=== PATIENT | female | born 1970 | race Caucasian/White ===

== ENCOUNTER → 2017-05-28 | Outpatient (CLI) | payer OTHER ==
--- NOTE | 2017-05-29 07:12 | PAP/PSG TECHNICIAN REPORT ---
[facility] Corporate Travel Counselor Polysomnogram Report Study name: None Report date: 05/29/2017 Study date: 05/28/2017 Referring Physician: Narinder Martines M.D. Name: TAMERA BRISENO Interpreting Physician: Farhana Martines M.D. Date of : 1970 Corporate Travel Counselor: TARAH Da Silva. Sex: Female Age: 46 StudyType: PSG Weight: 174 lbs Height: 46 years, Height 5' 8" Neck Circum: 15 inches BMI: 26.45 Medications: Celexa 40 mg Patient History 46 yr. old female here for a possible split night sleep study in room 5. Patient complains of EDS, snoring, and frequent awakenings. Patients [place] Sleepiness Scale score is 14/24. Parameters Monitored NPSG: E1-M2, E2-M1, Fp1-M2, Fp2-M1, F3-M2, F4-M2, F4-M1, C3-M2, C4-M2, C4-M1, O1-M2, O2-M2, O2-M1, T3-M2, T4-M1, P3-M2, P4-M1, CHIN1, CHIN2, HR, EKG, Legs, PFLOW, SNOR, FLOW, CFLOW, Tidal Volume, THOR, ABDO, SpO2, PLTH, CPRESS, ETCO2 Wave, ETCO2, pH Sleep Architecture Sleep Stages Time at Lights Off 8:33:23 PM STAGES Time (min.) TST (%) Time at Lights On 5:33:53 AM Wake 58.5 -- Total Recording Time (TRT) 540.50 min. N1 30.5 6 Total Sleep Period (TSP) 506.0 min. N2 364.5 76 Total Sleep Time (TST) 482.0min. N3 10.0 2 Awake Time 58.5 min. REM 77.0 16 Wake after Sleep Onset 24.0 min. Sleep Efficiency (SE) 89 % Sleep Onset Latency (MYRA) 34.5 min. Number of Stage 1 Shifts None Awakenings 17 Stage Changes 78 Number of REM periods 5 REM 77.0 16 REM Latency 318.5 min. NREM 405.0 84 Body Position Analysis Supine Right Left Side Prone Vertical Total Sleep Time (min.) 531.2 6.5 0.0 6.50 0.0 0.0 Total Sleep Time (%) 99% 1% 0% 1 0% N/A% Total Sleep Time REM (min.) 77.0 0.0 0.0 None 0.0 0.0 Total Sleep Time NREM (min.) 398.5 6.5 0.0 None 0.0 0.0 Intermittent Wake (min.) 55.7 2.8 0.0 None 0.0 0.0 Total Sleep Period (%) 98% None None None None None Arousals Myoclonus (PLM) * Events Count Index Events Count Index Spontaneous 9 1 Events Awake (PLMW) 17 17.4 Respiratory 43 5.6 Events Asleep w/ Arousal (PLMA) 24 3.0 PLM 24 3 Events Asleep w/o Arousal (PLMS) 97 12.1 Snoring 15 2 Total Asleep 121 15.1 Total 91 11 Total 138 15 Respiratory Analysis * CA OA MA CH H RERA Total Count 0 10 0 0 32 41 42 Index 0.0 1.2 0.0 0 4.0 5 10.3 Mean Duration 0.0 14.8 0.0 0.00 23.6 20.3 20.9 Longest Duration 0.0 23.5 0.0 0.00 0.0 28.6 52.6 Respiratory Event Summary Total Supine ~Supine Right Left Prone REM NREM Apneas Count 10 10 0 0 N/A N/A 3 7 Index 1.2 1 0 0.0 N/A N/A 2 1 Hypopneas (4% Desat) Count 32 32 0 0 N/A N/A 9 23 Index 4.0 4.0 0 0.0 N/A N/A 7.0 3.4 Apneas & All Hypopneas Count 42 42 0 0 N/A N/A 12 30 Index 5.2 5 0 0 N/A N/A 9.4 4.4 Respiratory Events (Track Moving Machine Operator+All Hyp+RERA) Count 42 83 0 0 N/A N/A 12 30 Index 10.3 10 0 0.0 N/A N/A 10.1 10.4 Respiratory Related Arousal Count 43 83 0 0 N/A N/A 4 41 Index 5.6 6 0 0 N/A N/A 3 6 Snoring Analysis Supine Right Left Prone REM NREM Total Snore duration 34.8 min Snores count 1,285 5 N/A N/A 185 1,105 1,290 Snore mean duration 1.6 Sec Snores index 162 46 N/A N/A 144.2 163.7 160.6 TST with snoring (%) 7.2% Desaturation Event Summary: Minimum %SpO2 Event Count Mean/Min/Max Duration(sec.) Desaturation Index % Time In Bed > 90 42 28.4 / 7.5 / 59.5 4.7 99.3 86 - 90 0 N/A 0.0 0.7 81 - 85 0 N/A 0.0 0.0 76 - 80 0 N/A 0.0 0.0 71 - 75 0 N/A 0.0 0.0 66 - 70 0 N/A 0.0 0.0 61 - 65 0 N/A 0.0 0.0 56 - 60 0 N/A 0.0 0.0 51 - 55 0 N/A 0.0 0.0 < 50 0 N/A 0.0 0.0 Total REM NREM Awake <50% 0.0 min. 0.0 min. 0.0 min. 0.0 min. 51 - 60% 0.0 min. 0.0 min. 0.0 min. 0.0 min. 61 - 70% 0.0 min. 0.0 min. 0.0 min. 0.0 min. 71 - 80% 0.0 min. 0.0 min. 0.0 min. 0.0 min. 81 - 90% 4.0 min. 1.8 min. 2.3 min. 0.0 min. 91 - 100% 536.5 min. 75.3 min. 402.7 min. 58.5 min. Average 94 93 94 95 Minimum SpO2 87 88 87 91 Desaturation Event Index 4.7 7.8 4.3 3.1 # Desat. Events below 89% 4 3 1 N/A Time(%) with Saturation below 89% 0.1 0.1 0.0 0.0 Time(min.) with Saturation below 89% 0.6 0.4 0.2 0.0 Time (mins) REM (mins) NREM (mins) % of TST SpO2 Below 90% 23 10 N13 0.4 SpO2 Below 88% 2 0 0 0 Heart Rate Analysis Min (bpm) Max (bpm) Average (bpm) Awake 55 108 67 NREM 51 98 64 REM 54 88 70 Overall 51 98 65 Supplemental O2 Values Minimum O2 level: None Value Start Time End Time Corporate Travel Counselor Comments Mrs. Briseno slept in the right and supine positions. No cardiac arrhythmia. PLMs noted. No bruxism noted. Snoring was noted and scored as a 2 on a scale of 0 through 5. (0=no snoring, 5=snoring loud enough to be heard through a closed door or down the alicia way) Mrs. Briseno did not wake to use the restroom during the night. Mrs. Christensen stated,I woke up a lot. The final report will be interpreted and signed by a sleep physician. The completed physician report will then be placed in the patient medical record. Therapy (cm H2O) 0 TIB (min.) 540.5 TST (min.) 482.0 Sleep Onset (min.) 34.5 REM Onset From Sleep (min.) 318.5 Sleep Efficiency % 89 Wakefulness (%) 11 Wakefulness (min.) 58.5 NREM 1 (%) 6 NREM 1 (min.) 30.5 NREM 2 (%) 76 NREM 2 (min.) 364.5 NREM 3 (%) 2 NREM 3 (min.) 10.0 REM (%) 16 REM (min.) 77.0 # Arousals 91 Arousal Index 11 # Snore 1,290 Snore Index 160.6 AHI 5.2 AHI Supine 5 AHI Non-Supine 0 NREM AHI 4.4 REM AHI 9.4 RDI 10.3 # Obstructive Apnea 10 # Central Apnea 0 # Mixed Apnea 0 # Hypopneas 32 RERAs 41 Total Respiratory Events 85 Time Below SpO2 89% (min.) 0.6 Mean NREM SpO2 (%) 94 Mean REM SpO2 (%) 93 Mean Sleep SpO2 (%) 94 Min NREM SpO2 (%) 87 Min REM SpO2 (%) 88 Position Supine (min.) 531.2 Position Non-supine (min.) 6.5 LM Index Sleep 15.1 LM Index NREM 14.7 LM Index REM 17.1 Mean Heart Rate (bpm) 65 Min Heart Rate (bpm) 51
--- NOTE | 2017-06-21 13:55 | POLYSOMNOGRAPH REPORT ---
REFERRING PERSON: Dr. Yvon Martines. WEDGER MACHINE: Jamila Hughes. Ms. Caraballo is a 46-year-old female sent for a possible split night sleep study. She complains of excessive daytime sleepiness, snoring, and frequent awakenings during sleep. Her [place] sleepiness scale score on the evening of this study is 14. BMI is 26.45. Following the technical and digital specifications of the [place] [employer] (AASM) a standard diagnostic polysomnogram was performed monitoring EEG, EOG, EMG (chin and leg deviations), oxygen saturation, body position, digital video, respiratory effort and airflow. The sleep Stage and event scoring was based on the AASM Manual for the Scoring of Sleep and Associated Events 2007 edition. Apneas are defined as a drop in the peak thermal sensor excursion by >90% of baseline for at least 10 seconds. Hypopneas were scored using the 4% oxygen desaturation rule (4A-[employer]) and a decrease in the nasal pressure excursions by >30% of baseline for at least 10 seconds. Respiratory effort-related arousal (RERA's) is defined as a sequence of breaths lasting at least 10 seconds characterized by increasing respiratory effort or flattening of the nasal pressure waveform leading to an arousal from sleep when the sequence of breaths does not meet criteria for an apnea or hypopnea. Apnea Hypopnea index (AHI) is defined as the number of apneas and hypopneas occurring in an hour of sleep. Respiratory disturbance index (RDI) is defined as the number of apneas, hypopneas, and RERA's occurring in an hour of sleep. Ms. Caraballo's total sleep period time was 506 minutes. Total sleep time was 482 minutes. Sleep efficiency was 89%. Latency to sleep onset was 34.5 minutes. Wake after sleep onset was 24 minutes. Total non-REM sleep time was 405 minutes. She spent 6% of that time in N1 sleep, 76% in N2 sleep and 2% in N3 sleep. REM latency was 318.5 minutes. Total REM sleep time was 77 minutes or 16% of total sleep time. There were 91 cortical arousals from sleep. Nine of these arousals were spontaneous, 43 were due to respiratory events, 24 due to periodic limb movements of sleep and 15 were due to snoring. There was 121 periodic limb movements noted on this test. Limb movement index was 15.1. Limb movement with arousal index was 3.0. On this sleep test, there were no central apneas, 10 obstructive apneas and no mixed apneas. Additionally, there were 32 hypopnea. Apnea-hypopnea index was mildly elevated at 5.2. RDI was elevated at 10.3. There were 41 RERA on this test. 1290 snoring events were recorded. Total sleep time with snoring was 7.2%. Mean saturation during sleep was 94% with desaturations to 87%. Saturations were less than 89% for 0.6 minutes of recorded time. There was no cardiac ectopy noted on this test. Heart rates ranged from a low of 51 beats per minute to a high of 98 beats per minute during sleep. IMPRESSION AND PLAN: Ms. Caraballo is a 46-year-old female with very mild sleep apnea without nocturnal hypoxemia on this sleep study. 1. This patient may benefit from positive airway pressure therapy. She should return to the sleep lab for a full night titration and then based on those results be started on equipment at home. A download from her machine can be reviewed in 1 month both to check compliance as well as AHI and further pressure adjustments can occur at that time. 2. Alternatively, this patient could be started on auto titrating CPAP with pressures of 5-15 cm. Download reviewed in 1 month and this patient be then set to optimal pressure. 3. Should this patient be unwilling or unable to tolerate CPAP therapy, she could be referred to ear, nose and throat or oral surgery/dental medicine (if appropriate) to discuss alternative treatments for sleep disorder breathing.
== END | disposition home or self-care (01) ==
LOC: C.NEUR 20:00
PROVIDERS: ATTEND Family Medicine
DX: G47.10 Hypersomnia, unspecified (principal); R06.83 Snoring